=== PATIENT | female | born 1985 | race African-American/Black ===

== ENCOUNTER 2024-07-24 13:42 | Emergency (ER) | payer OTHER ==
[~2024-07-24] VITALS: Ht 165.1 cm; Wt 82.0 kg
[2024-07-24 13:51] VITALS: O2SAT 100
[2024-07-24] MEDS: KETOROLAC 30MG/ML VIAL IM STA (14:56)
[2024-07-24] MEDS ORDERED: NAPR-681 MT (16:17)
[2024-07-24] MEDS ORDERED: MELO-105 MT (16:34)
[2024-07-24 17:00] VITALS: BP 117/68; PULSE 79; RESP 17; TEMP 36.61404; O2SAT 100
== END 2024-07-24 17:40 | disposition home or self-care (01) ==
LOC: ER 13:52
DX: S39.012A Strain of muscle, fascia and tendon of lower back, initial encounter (principal); V49.9XXA Car occupant (driver) (passenger) injured in unspecified traffic accident, initial encounter; Y93.89 Activity, other specified; Y92.89 Other specified places as the place of occurrence of the external cause; Y99.8 Other external cause status
CPT/HCPCS: 81025; 72100; 96372; 99283; J1885; Z7610